=== PATIENT | male | born 1985 | race Caucasian/White ===

== ENCOUNTER 2024-07-23 11:37 | Emergency (ER) | payer BC ==
[~2024-07-23] VITALS: Ht 188 cm; Wt 150.9 kg
[2024-07-23] MEDS ORDERED: WEGOVY1.7 MG/0.7 SQ (11:56)
[2024-07-23 12:18] LABS: BASO # 0.01 K/mm3 (0.02-0.10); EOS % 1.3 % (0.0-4.0); HEMATOCRIT 46.2 % (42.0-52.0); HEMOGLOBIN 15.5 g/dL (13.5-18.0); LYMPH# 1.34 K/mm3 (1.50-4.00); MEAN CELL VOLUME 87 fl (78-100); MEAN CORPUSCULAR HEMOGLOBIN 29 pg (27-31); MEAN CORPUSCULAR HGB CONC 34 g/dL (33-37); MEAN PLATELET VOLUME 8.7 fl (7.4-10.4); MONO # 0.67 K/mm3 (0.20-0.80); NEU # 5.67 K/mm3 (1.40-6.50); PLATELET COUNT 187 K/mm3 (130-400); RED BLOOD COUNT 5.29 M/mm3 (4.20-5.60); RED CELL DISTRIBUTION WIDTH 12.6 % (11.5-14.5); WHITE BLOOD COUNT 7.8 K/mm3 (4.8-10.8)
[2024-07-23 12:25] LABS: ALBUMIN 4.1 g/dL (3.5-5.0)
[2024-07-23 12:28] LABS: TOTAL PROTEIN 7.2 g/dL (6.4-8.3)
[2024-07-23 12:30] LABS: TOTAL BILIRUBIN 0.8 mg/dL (0.2-1.2)
[2024-07-23] MEDS ORDERED: Iohexol 300 - 100 ML VIAL IV ONE (13:03)
[2024-07-23] MEDS ORDERED: NS 100 ML IV ONE (13:04)
[2024-07-23 13:20] LABS: URINE APPEARANCE CLEAR (CLEAR); URINE BILIRUBIN NEGATIVE (NEGATIVE); URINE BLOOD TRACE-INTACT (NEGATIVE); URINE COLOR YELLOW (YELLOW); URINE GLUCOSE NEGATIVE (NEGATIVE); URINE KETONE NEGATIVE (NEGATIVE); URINE NITRATE NEGATIVE (NEGATIVE); URINE PROTEIN(semi-quant) NEGATIVE (NEGATIVE)
[2024-07-23 13:21] LABS: URINE LEUKOCYTE ESTERASE NEGATIVE (NEGATIVE)
[2024-07-23] MEDS ORDERED: OMEPRAZOLE40 MG PO (13:37)
[2024-07-23] MEDS ORDERED: NORCO 325 MG-51 TA1 PO (13:37)
[2024-07-23] MEDS ORDERED: ZOFRAN ODT4 MG PO (13:37)
[2024-07-23 14:01] VITALS: BP 124/75
== END 2024-07-23 14:02 | disposition home or self-care (01) ==
LOC: ED 11:37
PROVIDERS: Family Medicine
DX: K29.80 Duodenitis without bleeding (principal)
CPT/HCPCS: Q9967